=== PATIENT | male | born 1985 | race Caucasian/White ===

== ENCOUNTER → 2017-08-26 | Outpatient (CLI) | payer SELFPAY ==
--- NOTE | 2017-08-26 16:46 | RADIOLOGY REPORT PS360 ---
KNEE-LIMITED 2 VIEWS-RT HISTORY: HEALING OF FX ORDERING PHYSICIAN: Luther Low MD PATIENT AGE: 31 years COMPARISON: None FINDINGS: No fracture or dislocation. No lytic or blastic change. Normal mineralization. No significant arthritic changes evident. No other significant findings. There is garment artifact overlying the lower femur IMPRESSION: Negative Knee
== END ==
LOC: RAD 09:06
DX: S82.141D Displaced bicondylar fracture of right tibia, subsequent encounter for closed fracture with routine healing (principal)